=== PATIENT | male | born 1965 | race Caucasian/White ===

== ENCOUNTER 2017-01-06 00:19 | Emergency (ER) | payer SELFPAY | END 2017-01-06 02:48 | disposition home or self-care (01) | LOC: ER 00:19 | DX: J98.01 Acute bronchospasm (principal); J44.9 Chronic obstructive pulmonary disease, unspecified; Z88.0 Allergy status to penicillin | CPT/HCPCS: 36415 ==

== ENCOUNTER 2017-01-27 19:04 | Emergency (ER) | payer OTHER | END 2017-01-27 20:49 | disposition home or self-care (01) | LOC: ER 19:04 | DX: S30.860A Insect bite (nonvenomous) of lower back and pelvis, initial encounter (principal); S80.862A Insect bite (nonvenomous), left lower leg, initial encounter; S80.861A Insect bite (nonvenomous), right lower leg, initial encounter; S40.862A Insect bite (nonvenomous) of left upper arm, initial encounter; S40.861A Insect bite (nonvenomous) of right upper arm, initial encounter; M54.41 Lumbago with sciatica, right side; J44.9 Chronic obstructive pulmonary disease, unspecified; F17.210 Nicotine dependence, cigarettes, uncomplicated; Z88.0 Allergy status to penicillin; W57.XXXA Bitten or stung by nonvenomous insect and other nonvenomous arthropods, initial encounter | CPT/HCPCS: J1885 ==